=== PATIENT | male | born 1975 | race African-American/Black ===

== ENCOUNTER 2025-02-09 21:53 | Emergency (ER) | payer MEDICARE, MEDICAID, SELFPAY ==
[2025-02-09 21:58] VITALS: BP 142/83; PULSE 93; RESP 18; TEMP 36.8; O2SAT 97; BMI 29.5
--- NOTE | 2025-02-09 22:05 | ECG_ITS ---
Test Reason : MEDICAL CLEARANCE Blood Pressure : */* mmHG Vent. Rate : 89 BPM Atrial Rate : 89 BPM P-R Int : 168 ms QRS Dur : 98 ms QT Int : 374 ms P-R-T Axes : 63 38 46 degrees QTcB Int : 455 ms Normal sinus rhythm Minimal voltage criteria for LVH, may be normal variant ( Sokolow-Poe ) Nonspecific T wave abnormality Abnormal ECG No previous ECGs available Referred By: Generic ED Physician Electronically Signed By: SHELIA LOPEZ MD
[2025-02-09 22:32] LABS: MANUAL DIFF FLAG NO
[2025-02-09 22:33] LABS: Hematocrit 34.3 % (42.0-52.0); Hemoglobin 12.1 g/dl (14.0-18.0); Imm Gran Abs Auto 0.03 X10*3/uL (0.00-0.03); Imm Gran Pct Auto 0.4 % (0.0-0.4); Lymphocytes Absolute Auto 2.8 X10*3/uL (1.2-4.9); Mean Corpuscular HGB Conc 35.3 g/dl (31.0-36.0); Mean Corpuscular Hemoglobin 32.2 pg (27.0-33.0); Mean Corpuscular Volume 91.2 fL (80.0-98.0); NRBC Abs Auto 0.000 X10*3/uL (0.0-0.012); NRBC Pct Auto 0.0 /100WBC (0.0-0.2); Platelet Count 167 X10*3/uL (160-400); Red Blood Count 3.76 X10*6/uL (4.60-5.80); White Blood Count 7.1 X10*3/uL (4.8-10.8)
[2025-02-09 22:48] VITALS: BP 142/83; PULSE 93; RESP 18; TEMP 36.8
--- NOTE | 2025-02-09 22:49 | PC.NURSE ---
PT arrives to the POD with security and staff, pt is agitated and refuses to give his phone to staff. Pt agrees to a clothing change and body search, VSS, Pt admits to using cocaine prior to arrival and that he is having suicidal thoughts with plans to OD on drugs. Pt is spoken to by Security at length, he begins to yell and argues with security
[2025-02-09 22:50] LABS: Acetaminophen LAB < 3 mcg/mL (<30); Salicylate < 5.0 mg/dL (15-30)
[2025-02-09 22:52] LABS: Alanine Aminotransferase 50 U/L (0-40); Albumin Level 4.1 g/dL (3.5-5.0); Alkaline Phosphatase 63 U/L (39-117); Anion Gap 14 (12-20); Aspartate Amino Transferase 45 U/L (5-37); Blood Urea Nitrogen 16 mg/dL (9-16); Calcium 8.8 mg/dL (8.4-10.2); Carbon Dioxide 24 mmol/L (22-29); Chloride 104 mmol/L (96-108); Creatinine Clr Calc Pharmacy 82.4; Estimated Glomerular Filt Rate > 60; Lipase 31 U/L (8-78); Magnesium 1.5 mg/dL (1.6-2.6); Potassium 2.9 mmol/L (3.3-5.1); Sodium 139 mmol/L (135-145); Total Protein 6.3 g/dL (6.5-8.0)
--- NOTE | 2025-02-09 23:04 | ED.GENADULT ---
HPI - General Adult General Chief complaint: Psychiatric Symptoms Stated complaint: SI Time Seen by Provider: 02/09/25 22:32 Source: patient, RN notes reviewed and old records reviewed Mode of arrival: ambulatory Limitations: no limitations History of Present Illness ED Provider: Roselia MENDOZA narrative: 49-year-old male with past medical history significant for HIV on HAART therapy, diabetes presents for evaluation of depression with suicidal ideation. Patient reports that he has been depressed with suicidal thoughts since yesterday. He has no specific plan pain He reports he has previously tried to harm himself with ?various overdoses. ? He denies any somatic complaints including fevers, chills, cough, shortness of breath, chest pain, abdominal pain. He reports that he uses cocaine by smoking only, denies any IV drugs. He last used earlier today. His last drink of alcohol was around 5:00 a.m. this morning. [facility] Related Data Home Medications ?Medication ?Instructions ?Recorded ?Confirmed Biktarvy 1 tab PO DAILY 02/10/25 02/10/25 BuSpar 5 mg PO TID 02/10/25 02/10/25 Jardiance 25 mg PO DAILY 02/10/25 02/10/25 Lantus Solostar U-100 Insulin 32 unit subcut BEDTIME 02/10/25 02/10/25 Seroquel 50 mg PO BID PRN anxiety, sleep 02/10/25 02/10/25 Seroquel 200 mg PO BEDTIME 02/10/25 02/10/25 atorvastatin 40 mg PO DAILY 02/10/25 02/10/25 citalopram 10 mg PO DAILY 02/10/25 02/10/25 nifedipine 90 mg PO DAILY 02/10/25 02/10/25 prazosin 4 mg PO BEDTIME 02/10/25 02/10/25 Allergies Allergy/AdvReac Type Severity Reaction Status Date / Time lisinopril Allergy Unknown Verified 02/09/25 22:00 Review of Systems Constitutional: Constitutional: Denies body ache(s), Denies chills, Denies fever(s) and Denies headache(s) Eyes: Eyes: Denies blurry vision ENT: Denies vertigo and Denies headache(s) Cardiovascular: Cardiovascular: Denies chest pain and Denies dyspnea on exertion Respiratory: Respiratory: Denies cough and Denies dyspnea on exertion Gastrointestinal: Gastrointestinal: Denies abdominal pain, Denies nausea and Denies vomiting Musculoskeletal: Musculoskeletal: Denies back pain Integumentary/Breasts: Skin/Breast: Denies rash Neurologic: Denies vertigo and Denies headache(s) Psychiatric: Psychiatric: Denies anxiety and Reports suicidal ideation PMFSH Social History Social History Unable to assess alcohol history related to: Unknown Substance Use Type: Crack/Cocaine Advance Directives: No Advance Directives Information Provided: No Do you have a plan to hurt others: No Plan Physical Exam ED Vital Signs: Vital Signs - 24 hr 02/11/25 04:44 02/11/25 08:07 02/11/25 09:40 Temperature 97.3 F Pulse Rate 72 Respiratory Rate 16 16 Blood Pressure 136/64 136/64 Pulse Oximetry 97 Oxygen Delivery Method Room Air 02/11/25 12:06 Temperature Pulse Rate 72 Respiratory Rate 18 Blood Pressure 155/90 H Pulse Oximetry 98 Oxygen Delivery Method Room Air BMI result Body Mass Index 29.5 Const General: healthy appearing, comfortable, no acute distress, alert and awake Nutritional Appearance: well nourished Orientation/consciousness: patient oriented x3 HENMT Head: Yes normocephalic and Yes atraumatic Eyes Eyelids: Yes eyelids normal Conjunctivae: conjunctivae normal Sclerae: sclerae normal Corneas: corneas normal Pupils: Equal, round and reactive pupils present EOM: EOMs intact bilaterally Neck Neck: Yes full ROM Resp Effort & Inspection: normal respiratory effort, able to speak in complete sentences and not labored Skin General skin exam: elasticity normal Neuro General: patient oriented x3 Cranial nerves: Yes CN's II-XII intact bilaterally, Yes Equal, round and reactive pupils present and Yes Bilaterally intact EOM present Cognition (Neuro): normal cognition Extrem Other: Moving all extremities well without any obvious deformities Course Reevaluation(s) Reevaluation #1: 9:09 AM 02/10/2025 (Dr. Santiago Murcia): Patient will be a [facility] for [facility], he is also hypomagnesemic and hypokalemic without ECG changes Time: 09:09 Reevaluation #2: 7:20 AM 02/11/2025 (Dr. Santiago Murcia): There reports that patient's CPK level I what he has been needs to be lower trending down before he can go [facility], he has had no TACHO associated with that small elevation of CK, we will give additional fluids, repeat CK and creatinine but if this continues to be elevated this maybe a normal variant for the patient and anticipate speaking to administration regarding disposition. Reevaluation #3: 12:25 PM 02/11/2025 (Dr. Santiago Murcia): Patient's CK is coming down just a little bit with IV fluids, he has got no evidence for TACHO, I discussed this with behavioral health team, there is really no medical indication to pursue this to a level of 0 which may be impossible, he is medically cleared to return to the pod Time: 14:01 Additional Reevaluation(s): Time: 14:01 Date: 02/11/25 Provider: Santiago Murcia, Physician observation ended Patient has been cleared for discharge by the CARE team. Will follow up as an outpatient. Medications Administered Generic Name Dose Route Start Last Admin Trade Name Shmuelq PRN Reason Stop Dose Admin Atorvastatin Calcium 40 mg 02/11/25 09:00 02/11/25 09:40 Atorvastatin Calcium 40 Mg Tablet PO 40 mg DAILY ELVIN Administration Bictegravir/Emtricitabine/Tenofovir 1 tab 02/11/25 09:00 02/11/25 09:40 Bictegrav/Emtricit/Tenofov Ala Tablet PO 1 tab DAILY ELVIN Administration Buspirone HCl 5 mg 02/10/25 21:00 02/11/25 09:40 Buspirone Hcl 5 Mg Tablet PO 5 mg TID ELVIN Administration Empagliflozin 25 mg 02/11/25 09:00 02/11/25 09:40 Empagliflozin 25 Mg Tablet PO 25 mg DAILY ELVIN Administration Escitalopram Oxalate 5 mg 02/10/25 19:00 02/11/25 09:40 Escitalopram Oxalate 5 Mg Tablet PO 5 mg DAILY ELVIN Administration Lactated Ringer's 1,000 mls @ 0 mls/hr 02/11/25 07:30 02/11/25 07:27 Lr IV 999 mls/hr .Q0M ELVIN Administration Wide Open Insulin Glargine 32 unit 02/10/25 21:00 02/10/25 20:19 Insulin Glargine,Hum.Rec.Anlog 100 Unit/Ml 10 Ml Vial SUBCUT 32 unit BEDTIME ELVIN Administration Nifedipine 90 mg 10/09/25 09:00 02/11/25 09:40 Nifedipine Er 90 Mg Tab.Er.24 PO 90 mg DAILY ELVIN Administration Prazosin HCl 4 mg 02/10/25 21:00 02/10/25 20:19 Prazosin Hcl 1 Mg Capsule PO 4 mg BEDTIME ELVIN Administration Quetiapine Fumarate 200 mg 02/10/25 21:00 02/10/25 20:19 Quetiapine Fumarate 200 Mg Tablet PO 200 mg BEDTIME ELVIN Administration Discontinued Medications Generic Name Dose Route Start Last Admin Trade Name Freq PRN Reason Stop Dose Admin Sodium Chloride 1,000 mls @ 999 mls/hr 02/10/25 15:45 02/10/25 16:35 Ns IV 02/10/25 16:45 Infused .Q1H1M ELVIN Infusion Lactated Ringer's 1,000 mls @ 999 mls/hr 02/10/25 16:15 02/10/25 17:12 Lr IV 02/10/25 17:15 Infused .Q1H1M ELVIN Infusion Lactated Ringer's 1,000 mls @ 999 mls/hr 02/10/25 18:30 02/10/25 21:41 Lr IV 02/10/25 19:30 Infused .Q1H1M ELVIN Infusion Lactated Ringer's 1,000 mls @ 999 mls/hr 02/10/25 22:00 02/10/25 23:12 Lr IV 02/10/25 23:00 Infused .Q1H1M ELVIN Infusion Ibuprofen 600 mg 02/10/25 11:01 02/10/25 11:07 Ibuprofen 600 Mg Tablet PO 02/10/25 11:02 600 mg ONCE ONE Administration Magnesium Oxide 800 mg 02/10/25 09:07 02/10/25 09:39 Magnesium Oxide 400 Mg Tablet PO 02/10/25 09:08 800 mg ONCE ONE Administration Potassium Chloride 40 meq 02/09/25 22:57 02/09/25 23:09 Potassium Chloride Er 20 Meq Tab.Er.Prt PO 02/09/25 22:58 Not Given ONCE ONE Potassium Chloride 10 meq 02/10/25 09:07 02/10/25 09:39 Potassium Chloride Er 10 Meq Tablet.Er PO 02/10/25 09:08 10 meq ONCE ONE Administration Potassium Chloride 40 meq 02/10/25 09:07 02/10/25 09:39 Potassium Chloride Packet 20 Meq Packet PO 02/10/25 09:08 40 meq ONCE ONE Administration Medical Decision Making Medical Decision Making [facility] Narrative: 49-year-old male presents for evaluation of depression with suicidal ideation. He denies any specific plan, he does have a history of suicidal ideation. [facility] [place] [facility] [place]. Plan for medical clearance and care team consult Differential Diagnosis Differential Diagnoses: The differential diagnosis associated with the presentation includes Depression Suicidal ideation Substance abuse Polysubstance abuse Bipolar disorder Lab Data [facility] Lab Attestation statement: I reviewed the patient's lab results. No white count, mild normocytic anemia of unclear significance. Normal platelet count. The patient's potassium was low at 2.9 and possibly related to alcohol abuse in 4 diet. Random glucose is 304 with no evidence of DKA 02/09/25 22:27 02/11/25 10:35 Labs: Lab Results 02/09/25 02/10/25 02/10/25 Range/Units 22:27 02:04 10:50 WBC 7.1 (4.8-10.8) X10*3/uL RBC 3.76 L (4.60-5.80) X10*6/uL Hgb 12.1 L (14.0-18.0) g/dl Hct 34.3 L (42.0-52.0) % MCV 91.2 (80.0-98.0) fL MCH 32.2 (27.0-33.0) pg MCHC 35.3 (31.0-36.0) g/dl RDW 13.9 (11.0-16.0) % Plt Count 167 (160-400) X10*3/uL MPV 9.9 (9.4-12.4) fL Immature Gran % (Auto) 0.4 (0.0-0.4) % Neut % (Auto) 51.8 (45-73) % Lymph % (Auto) 39.5 (20-40) % [place] % (Auto) 6.5 (2-11) % Eos % (Auto) 1.5 (0-4) % Baso % (Auto) 0.3 (0-2) % Lymph # (Auto) 2.8 (1.2-4.9) X10*3/uL [place] # (Auto) 0.5 (0.1-1.2) X10*3/uL Eos # (Auto) 0.1 (0.0-0.4) X10*3/uL Baso # (Auto) 0.0 (0.0-0.2) X10*3/uL Abs Immat Gran (auto) 0.03 (0.00-0.03) X10*3/uL Absolute Neuts (auto) 3.7 (2.0-8.3) x10*3/uL Absolute Nucleated RBC 0.000 (0.0-0.012) X10*3/uL Nucleated RBC % (auto) 0.0 (0.0-0.2) /100WBC PT 11.5 (10.9-12.4) SEC INR 1.0 (0.9-1.1) Sodium 139 (135-145) mmol/L Potassium 2.9 L* 4.0 D (3.3-5.1) mmol/L Chloride 104 (96-108) mmol/L Carbon Dioxide 24 (22-29) mmol/L Anion Gap 14 (12-20) BUN 16 (9-16) mg/dL Creatinine 1.22 (0.5-1.4) mg/dL Estim Creat Clear Calc 82.4 Estimated GFR > 60 POC Glucose (60-115) mg/dL Random Glucose 304 H (60-115) mg/dL Calcium 8.8 (8.4-10.2) mg/dL Magnesium 1.5 L 1.6 (1.6-2.6) mg/dL Total Bilirubin 0.7 (0.0-1.0) mg/dL AST 45 H (5-37) U/L ALT 50 H (0-40) U/L Alkaline Phosphatase 63 (39-117) U/L Total Creatine Kinase 848 H (38-174) U/L Total Protein 6.3 L (6.5-8.0) g/dL Albumin 4.1 (3.5-5.0) g/dL Lipase 31 (8-78) U/L Urine Color Yellow Urine Appearance Clear Urine pH 6.0 (5.0-9.0) Ur Specific [place] 1.020 (1.005-1.025) Urine Protein Negative (Neg-Trace) mg/dL Urine Glucose (UA) >=1000 H (Negative) mg/dL Urine Ketones Negative (Negative) mg/dL Urine Blood Negative (Negative) Urine Nitrite Negative (Negative) Ur Leukocyte Esterase Negative (Negative) Urine RBC 0-2 (0-2) /HPF Urine WBC 0-5 (0-5) /HPF Ur Squamous Epith Cells 0-2 (0-2) /HPF Urine Bacteria None Seen (None Seen) Hyaline Casts 0-2 (0-2) /LPF Salicylates < 5.0 L (15-30) mg/dL Urine Opiates Screen Not Detected (Not Detect) Ur Buprenorphine Scrn Not Detected (Not Detect) ng/mL Ur Oxycodone Screen Not Detected (Not Detect) ng/mL Urine Methadone Screen Not Detected (Not Detect) ng/mL Urine Fentanyl Screen POSITIVE H (Not Detect) Acetaminophen < 3 (<30) mcg/mL Ur Barbiturates Screen Not Detected (Not Detect) Ur Phencyclidine Scrn Not Detected (Not Detect) Ur Amphetamines Screen Not Detected (Not Detect) U Benzodiazepines Scrn Not Detected (Not Detect) Urine Cocaine Screen POSITIVE H (Not Detect) U Marijuana (THC) Screen POSITIVE H (Not Detect) Ethyl Alcohol < 10 mg/dL COVID-19 (BIN) Negative (Negative) COVID-19 Clin Com See Note 02/10/25 02/10/25 02/10/25 Range/Units 14:38 17:18 20:03 WBC (4.8-10.8) X10*3/uL RBC (4.60-5.80) X10*6/uL Hgb (14.0-18.0) g/dl Hct (42.0-52.0) % MCV (80.0-98.0) fL MCH (27.0-33.0) pg MCHC (31.0-36.0) g/dl RDW (11.0-16.0) % Plt Count (160-400) X10*3/uL MPV (9.4-12.4) fL Immature Gran % (Auto) (0.0-0.4) % Neut % (Auto) (45-73) % Lymph % (Auto) (20-40) % [place] % (Auto) (2-11) % Eos % (Auto) (0-4) % Baso % (Auto) (0-2) % Lymph # (Auto) (1.2-4.9) X10*3/uL [place] # (Auto) (0.1-1.2) X10*3/uL Eos # (Auto) (0.0-0.4) X10*3/uL Baso # (Auto) (0.0-0.2) X10*3/uL Abs Immat Gran (auto) (0.00-0.03) X10*3/uL Absolute Neuts (auto) (2.0-8.3) x10*3/uL Absolute Nucleated RBC (0.0-0.012) X10*3/uL Nucleated RBC % (auto) (0.0-0.2) /100WBC PT (10.9-12.4) SEC INR (0.9-1.1) Sodium (135-145) mmol/L Potassium (3.3-5.1) mmol/L Chloride (96-108) mmol/L Carbon Dioxide (22-29) mmol/L Anion Gap (12-20) BUN (9-16) mg/dL Creatinine (0.5-1.4) mg/dL Estim Creat Clear Calc Estimated GFR POC Glucose 130 H (60-115) mg/dL Random Glucose (60-115) mg/dL Calcium (8.4-10.2) mg/dL Magnesium (1.6-2.6) mg/dL Total Bilirubin (0.0-1.0) mg/dL AST (5-37) U/L ALT (0-40) U/L Alkaline Phosphatase (39-117) U/L Total Creatine Kinase 900 H 757 H (38-174) U/L Total Protein (6.5-8.0) g/dL Albumin (3.5-5.0) g/dL Lipase (8-78) U/L Urine Color Urine Appearance Urine pH (5.0-9.0) Ur Specific [place] (1.005-1.025) Urine Protein (Neg-Trace) mg/dL Urine Glucose (UA) (Negative) mg/dL Urine Ketones (Negative) mg/dL Urine Blood (Negative) Urine Nitrite (Negative) Ur Leukocyte Esterase (Negative) Urine RBC (0-2) /HPF Urine WBC (0-5) /HPF Ur Squamous Epith Cells (0-2) /HPF Urine Bacteria (None Seen) Hyaline Casts (0-2) /LPF Salicylates (15-30) mg/dL Urine Opiates Screen (Not Detect) Ur Buprenorphine Scrn (Not Detect) ng/mL Ur Oxycodone Screen (Not Detect) ng/mL Urine Methadone Screen (Not Detect) ng/mL Urine Fentanyl Screen (Not Detect) Acetaminophen (<30) mcg/mL Ur Barbiturates Screen (Not Detect) Ur Phencyclidine Scrn (Not Detect) Ur Amphetamines Screen (Not Detect) U Benzodiazepines Scrn (Not Detect) Urine Cocaine Screen (Not Detect) U Marijuana (THC) Screen (Not Detect) Ethyl Alcohol mg/dL COVID-19 (BIN) (Negative) COVID-19 Clin Com 02/11/25 Range/Units 10:35 WBC (4.8-10.8) X10*3/uL RBC (4.60-5.80) X10*6/uL Hgb (14.0-18.0) g/dl Hct (42.0-52.0) % MCV (80.0-98.0) fL MCH (27.0-33.0) pg MCHC (31.0-36.0) g/dl RDW (11.0-16.0) % Plt Count (160-400) X10*3/uL MPV (9.4-12.4) fL Immature Gran % (Auto) (0.0-0.4) % Neut % (Auto) (45-73) % Lymph % (Auto) (20-40) % [place] % (Auto) (2-11) % Eos % (Auto) (0-4) % Baso % (Auto) (0-2) % Lymph # (Auto) (1.2-4.9) X10*3/uL [place] # (Auto) (0.1-1.2) X10*3/uL Eos # (Auto) (0.0-0.4) X10*3/uL Baso # (Auto) (0.0-0.2) X10*3/uL Abs Immat Gran (auto) (0.00-0.03) X10*3/uL Absolute Neuts (auto) (2.0-8.3) x10*3/uL Absolute Nucleated RBC (0.0-0.012) X10*3/uL Nucleated RBC % (auto) (0.0-0.2) /100WBC PT (10.9-12.4) SEC INR (0.9-1.1) Sodium (135-145) mmol/L Potassium (3.3-5.1) mmol/L Chloride (96-108) mmol/L Carbon Dioxide (22-29) mmol/L Anion Gap (12-20) BUN (9-16) mg/dL Creatinine 0.86 (0.5-1.4) mg/dL Estim Creat Clear Calc 116.9 Estimated GFR > 60 POC Glucose (60-115) mg/dL Random Glucose (60-115) mg/dL Calcium (8.4-10.2) mg/dL Magnesium (1.6-2.6) mg/dL Total Bilirubin (0.0-1.0) mg/dL AST (5-37) U/L ALT (0-40) U/L Alkaline Phosphatase (39-117) U/L Total Creatine Kinase 628 H (38-174) U/L Total Protein (6.5-8.0) g/dL Albumin (3.5-5.0) g/dL Lipase (8-78) U/L Urine Color Urine Appearance Urine pH (5.0-9.0) Ur Specific [place] (1.005-1.025) Urine Protein (Neg-Trace) mg/dL Urine Glucose (UA) (Negative) mg/dL Urine Ketones (Negative) mg/dL Urine Blood (Negative) Urine Nitrite (Negative) Ur Leukocyte Esterase (Negative) Urine RBC (0-2) /HPF Urine WBC (0-5) /HPF Ur Squamous Epith Cells (0-2) /HPF Urine Bacteria (None Seen) Hyaline Casts (0-2) /LPF Salicylates (15-30) mg/dL Urine Opiates Screen (Not Detect) Ur Buprenorphine Scrn (Not Detect) ng/mL Ur Oxycodone Screen (Not Detect) ng/mL Urine Methadone Screen (Not Detect) ng/mL Urine Fentanyl Screen (Not Detect) Acetaminophen (<30) mcg/mL Ur Barbiturates Screen (Not Detect) Ur Phencyclidine Scrn (Not Detect) Ur Amphetamines Screen (Not Detect) U Benzodiazepines Scrn (Not Detect) Urine Cocaine Screen (Not Detect) U Marijuana (THC) Screen (Not Detect) Ethyl Alcohol mg/dL COVID-19 (BIN) (Negative) COVID-19 Clin Com Discharge Plan Discharge Clinical Impression: Suicidal ideation Patient Disposition: Home, Self-Care Additional Instructions: You were seen in our Emergency Department today for treatment of a behavioral health issue. It is important after your visit that you follow up with either your behavioral health provider or a primary care doctor within 7 days.? If you have trouble finding a therapist you can reach out to [address] [phone] The National Suicide and Crisis Lifeline can be reached 7 days a week 24 hours a day.? Call 988 to speak with someone.? Return for any worsening symptoms or concerns such as thoughts of self harm or harm to others. Please call 911 if you feel your mental health is worsening.? Prescriptions: No Action BuSpar 5 mg PO TID Jardiance 25 mg PO DAILY Lantus Solostar U-100 Insulin 32 unit subcut BEDTIME Seroquel 200 mg PO BEDTIME atorvastatin 40 mg PO DAILY nifedipine 90 mg PO DAILY prazosin 4 mg PO BEDTIME Biktarvy 1 tab PO DAILY Seroquel 50 mg PO BID PRN (Reason: anxiety, sleep) citalopram 10 mg PO DAILY Interventions: Lamb-Suicide Risk Severity Scale Last Done: 02/10/25 23:35 Print Language: Unable To Collect
--- NOTE | 2025-02-09 23:09 | PC.NURSE ---
This RN assumed pt care @ 2300. Pt ambulating throughout unit w/ steady gait. Pt refused potassium Pt educated on the importance of taking meds for low potassium Provider notified and aware pt refusing meds Pt advised [facility] not [facility]. Plan of care ongoing.
--- NOTE | 2025-02-10 02:13 | PC.NURSE ---
Provider attempted to speak with pt regarding meds Pt began to yell and try to close the door in providers face Pt yelling i dont care. I already told the nurse no and you no. Im not taking it Plan of care ongoing.
[2025-02-10 02:14] LABS: Appearance Urine Clear; Glucose Urine UA >=1000 mg/dL (Negative); PH 6.0 (5.0-9.0); Specific Gravity - Urine 1.020 (1.005-1.025); UMIC TRIGGER UACC YES
[2025-02-10 02:24] LABS: Cannabinoid Screen Urine POSITIVE (Not Detect)
--- NOTE | 2025-02-10 03:10 | PC.NURSE ---
Assumed care of pt at 0310. Report received from Tyson Viveros. Safety precautions in place- 15 minutes check remain, video monitoring on. Pt continues to refuses PO K supplement, provider aware. Plan of care ongoing.
[2025-02-10 06:04] VITALS: RESP 16
--- NOTE | 2025-02-10 08:55 | MHC.CARE ---
Pt will be a [place] bedsearch
[2025-02-10] MEDS: Potassium Chloride ER 10 MEQ TABLET.ER PO (09:39)
[2025-02-10] MEDS: Potassium Chloride Packet 20 MEQ PACKET 40 MEQ PO (09:39)
[2025-02-10 11:09] LABS: Magnesium 1.6 mg/dL (1.6-2.6)
[2025-02-10 11:11] LABS: Potassium 4.0 mmol/L (3.3-5.1)
[2025-02-10 11:19] LABS: INTERNATIONAL NORM RATIO 1.0 (0.9-1.1); Prothrombin Time 11.5 SEC (10.9-12.4)
[2025-02-10 12:14] LABS: COVID-19 Test Negative (Negative); IDNOW Serial# 6674DD1D
[2025-02-10 14:00] VITALS: BP 142/84; PULSE 91; RESP 16; O2SAT 98
--- NOTE | 2025-02-10 14:54 | MHC.CARE ---
Pt's renal case manager from [facility] contacted the CARE team for an update as he is very involved in Pt's care. He provided the name of his caddie supervisor at [facility] in the event more collateral is needed. Huey Darling
[2025-02-10] MEDS: Lactated Ringers 1,000 ML 999 ML IV ×3 (16:33→22:01)
--- NOTE | 2025-02-10 19:43 | PC.NURSE ---
Assumed care of patient at 1845, patient appears to be agitated regarding not seeing provider. Dr. Triana made aware, MD came to see patient. Pt calmer at this time, IV fluids being administered at this time. Continue plan of care for [place] bedsearch
[2025-02-10 20:07] LABS: Glucose, Whole Blood 130 mg/dL (60-115)
[2025-02-10] MEDS: Insulin Glargine,Hum.rec.anlog 100 UNIT/ML 10 ML VIAL 32 UNIT SUBCUT (20:19)
[2025-02-11 04:44] VITALS: RESP 16
[2025-02-11] MEDS: Lactated Ringers 1,000 ML 999 ML IV (07:27)
[2025-02-11 08:07] VITALS: BP 136/64; PULSE 72; RESP 16; TEMP 36.3; O2SAT 97
[2025-02-11 09:40] VITALS: BP 136/64
[2025-02-11] MEDS: Bictegrav/Emtricit/Tenofov Ala TABLET 1 TAB PO (09:40)
[2025-02-11 10:52] LABS: Creatinine Clr Calc Pharmacy 116.9; Estimated Glomerular Filt Rate > 60
[2025-02-11 12:06] VITALS: BP 155/90; PULSE 72; RESP 18; O2SAT 98
[2025-02-11 14:13] VITALS: BP 155/90; PULSE 72; RESP 18; TEMP -17.7; TEMP 0; O2SAT 98
[2025-02-11 14:27] VITALS: BP 155/90; PULSE 72; RESP 18; TEMP 36.7
== END 2025-02-11 14:28 | disposition home or self-care (01) ==
PROVIDERS: Emergency Medicine; Physician Assistant; Emergency Provider Emergency Medicine
DX: R45.851 Suicidal ideations (principal); E83.42 Hypomagnesemia; E87.6 Hypokalemia; Z21 Asymptomatic human immunodeficiency virus [HIV] infection status; E11.9 Type 2 diabetes mellitus without complications; Z79.899 Other long term (current) drug therapy
CPT/HCPCS: 36415; 80053; 80143; 80179; 80307; 81001; 82550; 82565; 82947; 83690; 83735; 84132; 85025; 85610; 87635; 93005; 96360; 96361; 99285; J7120; S9485

== ENCOUNTER → 2025-02-09 22:05 | Outpatient (BNV) | payer MEDICARE, MEDICAID, SELFPAY | PROVIDERS: Emergency Provider Emergency Medicine; Visit Provider Internal Medicine Cardiovascular Disease | DX: R94.31 Abnormal electrocardiogram [ECG] [EKG] (principal); Z13.6 Encounter for screening for cardiovascular disorders | CPT/HCPCS: 93010 ==